=== PATIENT | female | born 1940 | race Caucasian/White ===

== ENCOUNTER 2022-03-31 13:17 | Emergency (ER) | payer MEDICARE ==
[~2022-03-31] VITALS: Ht 152.4 cm; Wt 49.0 kg
[2022-03-31] MEDS ORDERED: IV NORMAL SALINE 500 ML BAG IV ONE (14:15)
[2022-03-31 14:24] LABS: HEMATOCRIT 33.7 % (31.2-41.9); MEAN CORPUSCULAR HEMOGLOBIN 33.3 uug (24.7-32.8); MEAN CORPUSCULAR VOLUME 99.1 fL (75.5-95.3); PLATELET COUNT (AUTO) 285 K/uL (179-408)
[2022-03-31 14:28] LABS: CARBON DIOXIDE 29 mmol/L (21-32); CHLORIDE 96 mmol/L (98-107); GLUCOSE 167 mg/dL (74-106); POTASSIUM 4.2 mmol/L (3.5-5.1); UREA NITROGEN, BLOOD 27 mg/dL (7-18)
[2022-03-31] MEDS ORDERED: ACYC200C31 PO (15:18)
[2022-03-31] MEDS ORDERED: Aggrenox PO (15:18)
[2022-03-31] MEDS ORDERED: IRON-21 PO (15:18)
[2022-03-31] MEDS ORDERED: PRAV10TA40 PO (15:18)
[2022-03-31] MEDS ORDERED: ESTR0.3T3 PO (15:18)
--- NOTE | 2022-03-31 18:45 | NUR ---
Removed IV intact, site okay, bandaged. Gave pt d/c instructions, pt verbalized understanding.
[2022-03-31 19:14] VITALS: BP 130/64
== END 2022-03-31 18:50 | disposition home or self-care (01) ==
LOC: ER 13:17
DX: R55 Syncope and collapse (principal); R01.1 Cardiac murmur, unspecified; Z86.73 Personal history of transient ischemic attack (TIA), and cerebral infarction without residual deficits; I70.90 Unspecified atherosclerosis; Z79.899 Other long term (current) drug therapy
CPT/HCPCS: 99285; 96360; 71045; 80048; 85025; 84484 ×2; 36415; 93005; J7040; A4663